=== PATIENT | female | born 1960 | race African-American/Black ===

== ENCOUNTER → 2019-10-06 | Outpatient (CLI) | payer OTHER ==
[~2019-10-06] MED LIST: OXYMETAZOLINE 0.05% NASAL SPRAY 30ML BOTTLE. NS ONE; ZOLPIDEM 5 MG TABLET. PO ONE
--- NOTE | 2019-10-08 19:43 | SLEEP ---
DATE OF STUDY: 10/06/2019 SLEEP STUDY ATTENDING PHYSICIAN: Dr. Pedro. The patient is 58 years old who weighs 198 pounds with a BMI of 37. The patient's Annada score was 10. The patient underwent split night study performed at [facility]. During the night study, the patient spent 423 minutes in bed and slept for 275 minutes with a sleep efficiency of 65%, which was low. Sleep latency was prolonged at 111 minutes with a REM latency of 256 minutes. Sleep architecture showed normal stage 1 sleep, increased stage 2 sleep, absent slow wave and normal REM sleep. During the initial diagnostic portion of the study, the patient slept for 72 minutes. During that time, there were no obstructive, mixed or central apneas. There were 34 hypopneas. The patient's AHI was 29 per hour with a supine AHI of 42 per hour. REM sleep was not seen during the diagnostic portion. No PLMS observed. EKG monitoring revealed no arrhythmias. Nocturnal oximetry study revealed a mean oxygen saturation 98% with the lowest of 84%. A 9% of time oxygen saturation remained between 80% and 89%. The patient met the criteria for CPAP initiation. It was started at 7 cm water and titrated up to 15 cm water. At the final pressure, the patient slept for 145 minutes. The patient had supine as well as REM sleep. The patient's AHI was reduced to 1 per hour and oxygen saturations remained above 92%. The patient uses small size full face mask. IMPRESSION: 1. Moderate to severe obstructive sleep apnea. Total apnea-hypopnea index 29 per hour with a supine apnea-hypopnea index of 42 per hour. REM sleep was not seen during the diagnostic portion of the study, which can underestimate the severity of sleep apnea. 2. Nocturnal hypoxia secondary to obstructive sleep apnea, but resolved with CPAP. 3. No clinically significant periodic limb movements. RECOMMENDATIONS: 1. CPAP at 15 cm water completely eliminated the patient's sleep apnea and should be used on a nightly basis. 2. Follow up in 4-6 weeks to assess compliance with CPAP and to document clinical improvement. 3. Weight loss is advised. 4. Avoid ONCOLOGIST depressants. 5. Cautioned regarding driving until symptoms of sleep apnea resolve with the use of CPAP. NATALYA GUILLAUME MD DR: IRISH/leonel JOB#: [id number] / [id number] LUIS Gill
== END | disposition home or self-care (01) ==
LOC: SLPLAB 18:54
PROVIDERS: ATTEND Family Medicine
DX: G47.33 Obstructive sleep apnea (adult) (pediatric) (principal); G47.34 Idiopathic sleep related nonobstructive alveolar hypoventilation; G47.19 Other hypersomnia
CPT/HCPCS: 95810

== ENCOUNTER → 2021-08-22 | Outpatient (CLI) | payer OTHER ==
--- NOTE | 2021-08-22 09:42 | RAD ---
Bilateral Renal Ultrasound, Renal Doppler: History: Uncontrolled hypertension. Technique: Sonographic examination of the kidneys was performed and multiple static images were obtai rudy. Color Doppler and arterial spectral analysis was applied as well for a renal ultrasound and renal art gael ultrasound duplex examination. Renal Ultrasound: Findings: Right Kidney: The right kidney appears normal without hydronephrosis and measures 11 cm in length. Visible stones in the gallbladder and there is increased echogenicity of the liver. Left Kidney: The left kidney appears normal without hydronephrosis and measures 13 cm in length. Impression: No hydronephrosis. Renal Artery Ultrasound Duplex Examination: Findings: There is normal arterial waveform morphology without abnormally high velocities. Impression: 1. No sonographic evidence of hemodynamically significant stenosis. 2. Fatty infiltration of the liver. 3. Cholelithiasis. Electronically signed by: Reyes Quick III, MD (08/22/2021 9:40 AM) [facility]
--- NOTE | 2021-08-22 16:07 | CARD ---
MR#: [id number] Date of Study: 08/22/2021 Ordering Physician: STU BYRD, Referring Physician: STU BYRD Tech: Lidia Waite RANI APPROVED REPORT EXAM: Two-dimensional and M-mode echocardiogram with Doppler and color Doppler. Other Information Quality : AverageHR: 67bpm Rhythm : NSR INDICATION Hypertension/HCVD RISK FACTORS Hypertension Obesity Hyperlipidemia Diabetes 2D DIMENSIONS RVDd3.6 (2.9-3.5cm)Left Atrium(2D)4.8 (1.6-4.0cm) IVSd1.7 (0.7-1.1cm)Aortic Root(2D)2.9 (2.0-3.7cm) LVDd4.8 (3.9-5.9cm)LVOT Diameter1.9 (1.8-2.4cm) PWd1.5 (0.7-1.1cm)LVDs2.7 (2.5-4.0cm) FS (%) 43.2 %SV80.6 ml LVEF(%)74.2 (>50%) Aortic Valve LVOT Peak Danish.94.2cm/Annette P 1/2 [id number] Mitral Valve MV E Rolpgsxh619.4cm/sMV DECEL [id number] MV A Wdsqdfld20.7cm/sE/A Ratio1.0 Pulmonary Valve PV Peak Qqzivsho447.6cm/s Tricuspid Valve TR P. Oeccuzla352re/sTR Peak Gr.35mmHg LEFT VENTRICLE The left ventricle is normal size. There is moderate concentric left ventricular hypertrophy. The lef t ventricular systolic function is normal. Estimated ejection fraction 55-60%. There is normal LV se gmental wall motion. The left ventricular diastolic function and filling is normal for age. RIGHT VENTRICLE The right ventricle is normal size. There is normal right ventricular wall thickness. The right ventr icular systolic function is normal. ATRIA The left atrium size is normal. The right atrium size is normal. The interatrial septum is intact wit h no evidence for an atrial septal defect or patent foramen ovale as noted on 2-D or Doppler imaging. AORTIC VALVE The aortic valve is thickened but opens well. Doppler and Color Flow revealed mild aortic regurgitati on. There is no significant aortic valvular stenosis. MITRAL VALVE The mitral valve is normal in structure and function. There is no evidence of mitral valve prolapse. There is no mitral valve stenosis. Doppler and Color-flow revealed mild mitral regurgitation. TRICUSPID VALVE The tricuspid valve is normal in structure and function. Doppler and Color Flow revealed mild tricusp id regurgitation. Estimated PAP 40 mmHg. There is no tricuspid valve stenosis. PULMONIC VALVE The pulmonary valve is normal in structure and function. Doppler and Color Flow revealed mild pulmoni c valvular regurgitation. GREAT VESSELS The aortic root is normal in size. The ascending aorta is normal in size. The IVC is normal in size a nd collapses >50% with inspiration. PERICARDIAL EFFUSION There is no evidence of significant pericardial effusion. Critical Notification Critical Value: No <Conclusion> The left ventricular systolic function is normal. Estimated ejection fraction 55-60%. There is normal LV segmental wall motion. Mild aortic regurgitation. Mild mitral regurgitation. Mild tricuspid regurgitation. Estimated PAP 40 mmHg. There is no evidence of significant pericardial effusion. Signed by : Stu Byrd, Electronically Approved : 08/22/2021 16:07:12
== END ==
LOC: US 08:36
PROVIDERS: ATTEND Internal Medicine Cardiovascular Disease
DX: I08.8 Other rheumatic multiple valve diseases (principal); K76.0 Fatty (change of) liver, not elsewhere classified; K80.20 Calculus of gallbladder without cholecystitis without obstruction; I10 Essential (primary) hypertension; I25.10 Atherosclerotic heart disease of native coronary artery without angina pectoris
CPT/HCPCS: 93306; 93975; C8929